=== PATIENT | female | born 1990 | race Caucasian/White ===

== ENCOUNTER 2021-06-25 15:13 | Emergency (ER) | payer SELFPAY ==
[~2021-06-25] VITALS: Ht 157.5 cm; Wt 52.0 kg
[2021-06-25 16:26] LABS: URINE HCG NEGATIVE (NEG)
[2021-06-25 16:35] LABS: CLARITY,URINE SLIGHTLY CLOUDY (Clear); COLOR,URINE YELLOW (Yellow); GLUCOSE, URINE NEGATIVE (Neg); KETONES,URINE NEGATIVE (Neg); LEUKOCYTE ESTERASE ,URINE NEGATIVE (Neg); NITRITES, URINE NEGATIVE (Neg); OCCULT BLOOD,URINE MODERATE (Neg); PROTEIN,URINE NEGATIVE (Neg)
[2021-06-25 16:45] LABS: ALANINE AMINOTRANSFERASE 23 U/L (12-78); ALBUMIN 3.9 G/DL (3.4-5.0); ALBUMIN/GLOBULIN RATIO 0.9 (1.1-1.5); ALKALINE PHOSPHATASE 88 IU/L (46-116); ANION GAP 9 (8-16); ASPARTATE AMINO TRANSFERASE 16 U/L (10-37); BILIRUBIN,TOTAL 0.5 MG/DL (0.1-1.0); BLOOD UREA NITROGEN 11 MG/DL (7-18); BUN/CREATININE RATIO 13.6 (6.6-38.0); CALCIUM 9.1 MG/DL (8.5-10.1); CHLORIDE 103 MMOL/L (99-107); CREATININE 0.81 MG/DL (0.40-0.90); GLUCOSE 72 MG/DL (70-104); LIPASE 67 U/L (73-393); POTASSIUM 4.4 MMOL/L (3.5-5.1); SODIUM 142 MMOL/L (135-145); TOTAL CARBON DIOXIDE 29.9 MMOL/L (24-32); TOTAL PROTEIN 8.4 G/DL (6.4-8.2); eGFR 84 ML/MIN
[2021-06-25 16:53] LABS: UA COLLECTION TYPE CLN CATCH MIDSTREAM
[2021-06-25 16:56] LABS: MUCUS STRANDS FEW /LPF (Neg); SQUAMOUS EPITHELIAL CELL,UR MODERATE /LPF (FEW)
[2021-06-25 16:57] LABS: BACTERIA,URINE FEW /HPF (Neg); RBC,URINE 0-2 /HPF (0-2); WBC,URINE 0-4 /HPF (0-4)
[2021-06-25 17:41] LABS: BASOPHILS % (AUTO) 0.2 % (0-1); EOSINOPHILS # (AUTO) 0.1 X10'3 (0-0.9); EOSINOPHILS % (AUTO) 0.6 % (0-6); HEMATOCRIT 46.8 % (35.0-45.0); HEMOGLOBIN 15.9 g/dl (12.0-16.0); LYMPHOCYTES # (AUTO) 1.3 X10'3 (1.1-4.8); LYMPHOCYTES % (AUTO) 9.2 % (21-51); MEAN CORPUSCULAR HEMOGLOBIN 31.9 PG (27.0-31.0); MEAN CORPUSCULAR HGB CONC 34.1 g/dL (33.0-36.5); MEAN CORPUSCULAR VOLUME 93.6 FL (78-98); MONOCYTES # (AUTO) 0.9 X10'3 (0-0.9); MONOCYTES % (AUTO) 6.4 % (2-12); NEUTROPHILS # (AUTO) 11.4 X10'3 (1.8-7.7); NEUTROPHILS % (AUTO) 83.6 % (42-75); PLATELET COUNT 267 X10'3 (140-440); RED CELL DISTRIBUTION WIDTH 12.8 % (11.5-14.5); WHITE BLOOD COUNT 13.7 X10'3 (4.5-11.0)
[2021-06-25] MEDS ORDERED: normal saline 1000ml 1,000 ML IV ONE (20:15)
[2021-06-25] MEDS ORDERED: ondansetron/PF 4mg/2ml inj IV ONE ×2 (20:15→22:35)
[2021-06-25] MEDS ORDERED: morphine 4 MG/ML inj SYRINge IV ONE ×2 (20:25→22:35)
[2021-06-25] MEDS ORDERED: iohexol 300mg/ml 100ml inj. ONE (20:33)
[2021-06-25] MEDS ORDERED: CefTRIAXone 2gm/D5W 50ml BAG 50 ML IV ONE (20:40)
[2021-06-25] MEDS ORDERED: levoFLOXACIN-Levaquin 500mg/D5 100 ML IV ONE (20:48)
[2021-06-25] MEDS ORDERED: metroNIDAZOLE-Flagyl 500mg/NS 100ml IVPB IV ONE (20:49)
[2021-06-25 22:28] LABS: URINE AMPHETAMINE SCREEN NEGATIVE (Neg); URINE BARBITUATE SCREEN NEGATIVE (Neg); URINE BENZODIAZEPINES SCREEN NEGATIVE (Neg); URINE CANNABINOID SCREEN POSITIVE (Neg); URINE COCAINE SCREEN NEGATIVE (Neg); URINE METHADONE SCREEN NEGATIVE (Neg); URINE OPIATE SCREEN NEGATIVE (Neg); URINE PHENCYCLIDINE SCREEN NEGATIVE (Neg)
[2021-06-26] MEDS ORDERED: ketorolac trometh. 30mg/ml inj. IV ONE (00:40)
[2021-06-26] MEDS: morphine 4 MG/ML inj SYRINge IM PRN ×2 (00:53→04:51)
[2021-06-26] MEDS: morphine 4 MG/ML inj SYRINge IV PRN ×5 (09:53→22:57)
[2021-06-26] MEDS ORDERED: metroNIDAZOLE-Flagyl 500mg/NS 100 ML IV ONE (11:00)
[2021-06-26] MEDS ORDERED: levoFLOXACIN-Levaquin 500mg/D5 100 ML IV ONE (11:00)
--- NOTE | 2021-06-26 11:23 | NUR ---
pt iv abx comptability checked before starting abx and flagyl and levoflaxacin are comptable.
--- NOTE | 2021-06-26 13:37 | NUR ---
CALLED [facility] [place] REGARDING WHAT WAS GOING ON WITH THE TRANSFER THEY TOLD ME THAT THEY WERE STILL WAITING FOR A NURSE FROM THE [facility] TO BE ASSIGNED TO IT. WAS INFORMED BY THEM THAT THEY WERE AT HIGH CALL VOLUME AND THAT WOULD TAKE AWHILE TO GET A CALL BACK.
--- NOTE | 2021-06-26 15:52 | NUR ---
spoke to thania salas before to get order for regular diet.
--- NOTE | 2021-06-26 16:11 | NUR ---
DIRECTOR OF CAREER SERVICES AT BEDSIDE.
[2021-06-26] MEDS ORDERED: normal saline 1000ml 1,000 ML IV ONE (19:00)
[2021-06-26] MEDS ORDERED: LORazepam 2 mg/ml vial IV ONE (20:00)
[2021-06-26 20:13] LABS: ALANINE AMINOTRANSFERASE 17 U/L (12-78); ALBUMIN 2.9 G/DL (3.4-5.0); ALBUMIN/GLOBULIN RATIO 0.7 (1.1-1.5); ALKALINE PHOSPHATASE 91 IU/L (46-116); ANION GAP 10 (8-16); ASPARTATE AMINO TRANSFERASE 11 U/L (10-37); BILIRUBIN,TOTAL 0.7 MG/DL (0.1-1.0); BLOOD UREA NITROGEN 13 MG/DL (7-18); BUN/CREATININE RATIO 18.3 (6.6-38.0); CALCIUM 8.5 MG/DL (8.5-10.1); CHLORIDE 101 MMOL/L (99-107); CREATININE 0.71 MG/DL (0.40-0.90); GLUCOSE 132 MG/DL (70-104); POTASSIUM 4.3 MMOL/L (3.5-5.1); SODIUM 138 MMOL/L (135-145); TOTAL CARBON DIOXIDE 27.4 MMOL/L (24-32); TOTAL PROTEIN 7.1 G/DL (6.4-8.2); eGFR > 90 ML/MIN
[2021-06-26 20:22] LABS: BASOPHILS % (AUTO) 0.2 % (0-1); EOSINOPHILS # (AUTO) 0.1 X10'3 (0-0.9); EOSINOPHILS % (AUTO) 0.5 % (0-6); HEMATOCRIT 41.3 % (35.0-45.0); HEMOGLOBIN 14.3 g/dl (12.0-16.0); LYMPHOCYTES # (AUTO) 0.9 X10'3 (1.1-4.8); LYMPHOCYTES % (AUTO) 8.8 % (21-51); MEAN CORPUSCULAR HEMOGLOBIN 32.4 PG (27.0-31.0); MEAN CORPUSCULAR HGB CONC 34.5 g/dL (33.0-36.5); MEAN CORPUSCULAR VOLUME 93.9 FL (78-98); MEAN PLATELET VOLUME 9.1 FL (7.4-10.4); MONOCYTES # (AUTO) 0.9 X10'3 (0-0.9); MONOCYTES % (AUTO) 8.6 % (2-12); NEUTROPHILS # (AUTO) 8.8 X10'3 (1.8-7.7); NEUTROPHILS % (AUTO) 81.9 % (42-75); PLATELET COUNT 246 X10'3 (140-440); RED CELL DISTRIBUTION WIDTH 12.7 % (11.5-14.5); WHITE BLOOD COUNT 10.7 X10'3 (4.5-11.0)
[2021-06-26] MEDS: vancomycin/NS 1 GM ADD-VANTAGE 250 ML IV SCH (20:27)
[2021-06-26] MEDS: metroNIDAZOLE-Flagyl 500mg/NS 100 ML IV SCH (22:25)
--- NOTE | 2021-06-26 22:44 | NUR ---
PT ROOM TRANSFER. PT TO OVERFLOW
--- NOTE | 2021-06-26 23:00 | NUR ---
The patient moved to bed 24 in the ER. She was tearful. She denies n/v.
--- NOTE | 2021-06-27 06:35 | NUR ---
Patient sleeping on right side. No distress observed. Continue to monitor.
[2021-06-27] MEDS: metroNIDAZOLE-Flagyl 500mg/NS 100 ML IV SCH ×2 (07:53→13:40)
[2021-06-27] MEDS ORDERED: levoFLOXACIN-Levaquin 750MG/D5 150 ML IV SCH (08:00)
[2021-06-27] MEDS: morphine 4 MG/ML inj SYRINge IV PRN ×4 (08:08→14:05)
--- NOTE | 2021-06-27 08:15 | NUR ---
Patient eating breakfast. No distress observed. Patient received pain medication and is doing well. Continue to monitor.
[2021-06-27] MEDS: vancomycin/NS 1 GM ADD-VANTAGE 250 ML IV SCH (08:55)
--- NOTE | 2021-06-27 09:20 | NUR ---
Patient sleeping supine. No distress observed. Continue to monitor.
--- NOTE | 2021-06-27 11:10 | NUR ---
Patient appears to be sleeping. No distress observed. Continue to monitor.
--- NOTE | 2021-06-27 12:43 | NUR ---
Patient sleeping on right side. No distress observed. Continue to monitor.
[2021-06-27] MEDS ORDERED: vancomycin/NS 1 GM ADD-VANTAGE 250 ML IV SCH (16:00)
[2021-06-27 16:13] LABS: BASOPHILS % (AUTO) 0.4 % (0-1); EOSINOPHILS # (AUTO) 0.1 X10'3 (0-0.9); EOSINOPHILS % (AUTO) 1.1 % (0-6); HEMATOCRIT 42.4 % (35.0-45.0); HEMOGLOBIN 14.7 g/dl (12.0-16.0); LYMPHOCYTES # (AUTO) 1.1 X10'3 (1.1-4.8); LYMPHOCYTES % (AUTO) 10.5 % (21-51); MEAN CORPUSCULAR HEMOGLOBIN 32.2 PG (27.0-31.0); MEAN CORPUSCULAR HGB CONC 34.8 g/dL (33.0-36.5); MEAN CORPUSCULAR VOLUME 92.5 FL (78-98); MEAN PLATELET VOLUME 8.5 FL (7.4-10.4); MONOCYTES # (AUTO) 1.1 X10'3 (0-0.9); MONOCYTES % (AUTO) 10.9 % (2-12); NEUTROPHILS # (AUTO) 7.9 X10'3 (1.8-7.7); NEUTROPHILS % (AUTO) 77.1 % (42-75); PLATELET COUNT 233 X10'3 (140-440); RED BLOOD COUNT 4.58 X10'6 (4.20-5.60); RED CELL DISTRIBUTION WIDTH 12.3 % (11.5-14.5); WHITE BLOOD COUNT 10.3 X10'3 (4.5-11.0)
[2021-06-27 16:23] LABS: ALANINE AMINOTRANSFERASE 16 U/L (12-78); ALBUMIN 2.7 G/DL (3.4-5.0); ALBUMIN/GLOBULIN RATIO 0.6 (1.1-1.5); ALKALINE PHOSPHATASE 80 IU/L (46-116); ANION GAP 7 (8-16); ASPARTATE AMINO TRANSFERASE 13 U/L (10-37); BILIRUBIN,TOTAL 0.6 MG/DL (0.1-1.0); BLOOD UREA NITROGEN 11 MG/DL (7-18); CALCIUM 8.5 MG/DL (8.5-10.1); CHLORIDE 100 MMOL/L (99-107); CREATININE 0.58 MG/DL (0.40-0.90); GLUCOSE 99 MG/DL (70-104); POTASSIUM 4.1 MMOL/L (3.5-5.1); SODIUM 136 MMOL/L (135-145); TOTAL CARBON DIOXIDE 28.7 MMOL/L (24-32); TOTAL PROTEIN 7.2 G/DL (6.4-8.2); eGFR > 90 ML/MIN
[2021-06-27] MEDS ORDERED: METR-159 PO (17:11)
[2021-06-27] MEDS ORDERED: IBUP-1984 PO (17:11)
[2021-06-27] MEDS ORDERED: LINE600T11 PO (17:11)
[2021-06-27] MEDS ORDERED: LEVO500T89 PO (17:11)
[2021-06-27] MEDS ORDERED: ONDA4TAB6 PO (17:11)
[2021-06-27] MEDS ORDERED: HYDR-3965 PO (17:11)
[2021-06-27 17:22] VITALS: BP 133/68
--- NOTE | 2021-06-27 17:24 | NUR ---
Patient receiving Vancomycin. Patient will probably be going home after antibiotic is finished. No distress observed. Patient has pain medication on board. Continue to monitor.
[2021-06-27] MEDS ORDERED: morphine 4 MG/ML inj SYRINge IV ONE (18:45)
[2021-06-27] MEDS ORDERED: lactobacillus rhamnosus 10,000 MMU CELLS/CAPSULE PO SCH (20:00)
[2021-06-28] MEDS ORDERED: VANCOMYCIN LEVEL IV ONE (07:30)
== END 2021-06-27 19:43 | disposition home or self-care (01) ==
LOC: ER 15:14
DX: N73.0 Acute parametritis and pelvic cellulitis (principal); Z20.822 Contact with and (suspected) exposure to COVID-19; N70.91 Salpingitis, unspecified; Z88.1 Allergy status to other antibiotic agents; Z88.8 Allergy status to other drugs, medicaments and biological substances; Z79.2 Long term (current) use of antibiotics; Z79.899 Other long term (current) drug therapy
CPT/HCPCS: 36415; 74177; 80053; 80305; 81001; 81025; 83605; 83690; 84145; 85025; 87040; 87077; 87186; 87491; 87635; 96361; 96365; 96366; 96368; 96372; 96375; 96376; 99291; C9803; J1885; J1956; J2060; J2270; J2405; J3370; J3490; J7030; Q9967